=== PATIENT | female | born 1975 | race Caucasian/White ===

== ENCOUNTER 2017-06-13 07:20 | Emergency (ER) | payer BC ==
[2017-06-13 07:40] VITALS: BP 144/100
--- NOTE | 2017-06-13 07:51 | UC ---
Eye Complaint HPI - HPI Summary HPI Summary: ONSET YESTERDAY OF RIGHT EYE IRRITATION, REDNESS, CLEAR DRAINAGE. DOES WEAR CONTACTS BUT DID NOT WEAR THEM YESTERDAY. HAS HAD URI SX FOR ABOUT A WEEK. NO FEVER, MYALGIAS, NAUSEA OR UNUSUAL DUNCAN. NO PHOTOPHOBIA. HAS SOME BLURRY VISION DUE TO DRAINAGE. - History of Current Complaint Chief Complaint: UCGeneralIllness Stated Complaint: EYE ISSUE Time Seen by Provider: 06/13/17 07:36 Hx Obtained From: Patient Hx Last Menstrual Period: 06/07/17 Onset/Duration: Sudden Onset, Lasting Days, Still Present Timing: Constant Severity Initially: Moderate Severity Currently: Moderate Pain Intensity: 0 Pain Scale Used: 0-10 Numeric Location of Injury: Conjunctiva Aggravating Factor(s): Nothing Alleviating Factor(s): Nothing Associated Signs And Symptoms: Positive: Drainage (Clear). Negative: Photophobia, Drainage (Purulent), Vision Impairment Bilateral, Fever - Allergies/Home Medications Allergies/Adverse Reactions: Allergies Allergy/AdvReac Type Severity Reaction Status Date / Time No Known Allergies Allergy Verified 06/13/17 07:32 PMH/Surg Hx/FS Hx/Imm Hx Neurological History: Migraine - Surgical History Surgical History: Yes Surgery Procedure, Year, and Place: [facility] 2002 - Family History Known Family History: Positive: Hypertension - Social History Alcohol Use: Occasionally Substance Use Type: None Smoking Status (MU): Never Smoked Tobacco Review of Systems Constitutional: Negative Eyes: Blurred Vision, Drainage, Eye Redness ENT: Nasal Discharge Respiratory: Cough Cardiovascular: Negative Gastrointestinal: Negative All Other Systems Reviewed And Are Negative: Yes Physical Exam Triage Information Reviewed: Yes Appearance: Well-Appearing, No Pain Distress, Well-Nourished Vital Signs: Initial Vital Signs Temp 99 F 06/13/17 07:33 Pulse 71 06/13/17 07:33 Resp 14 06/13/17 07:33 BP 144/100 06/13/17 07:33 Pulse Ox 98 06/13/17 07:33 Vital Signs Reviewed: Yes Eyes: Positive: Conjunctiva Inflamed - RIGHT > LEFT, Discharge - CLEAR, Other: - PERRL, EOMI ENT: Positive: Hearing grossly normal, Pharynx normal, TMs normal Neck: Positive: Supple Respiratory Exam: Normal Cardiovascular Exam: Normal Abdomen Description: Positive: Soft Musculoskeletal: Positive: No Edema Neurological: Positive: Alert Psychological: Positive: Age Appropriate Behavior Skin: Negative: rashes Eye Complaint Course/Dx - Differential Dx/Diagnosis Provider Diagnoses: CONJUNCTIVITIS - RIGHT EYE Discharge - Discharge Plan Condition: Stable Disposition: HOME Prescriptions: Ciprofloxacin 0.3% OPTH.ESPERANZA* [Cipro 0.3% Opth*] 1 drop BOTH EYES Q4H #1 btl Patient Education Materials: Conjunctivitis (ED) Referrals: Soto BRIDGES,Flori [Nurse Practitioner] - If Needed Additional Instructions: NO CONTACTS UNTIL SYMPTOMS ARE COMPLETELY RESOLVED. SUGGEST DISPOSING OF THE EYE MAKEUP YOU USED WHILE SYMPTOMATIC. FOLLOW-UP WITH EYE DOCTOR IF YOU DEVELOP PAIN WITH EYE MOVEMENT, FOREIGN BODY SENSATION, PURULENT DRAINAGE, SENSITIVITY TO LIGHT, FEVER, VISUAL DISTURBANCE OR ANY OTHER CONCERNING SYMPTOMS. YOUR BLOOD PRESSURE WAS ELEVATED TODAY (144/100). THIS MAY BE DUE TO YOUR ACUTE CONDITION. MONITOR AND FOLLOW-UP WITH YOUR PCP WITHIN 4 WEEKS IF IT HAS NOT RETURNED TO NORMAL.
== END 2017-06-13 07:59 | disposition home or self-care (01) ==
LOC: UCEAST 07:20
DX: H10.31 Unspecified acute conjunctivitis, right eye (principal); R09.81 Nasal congestion; R05 Cough; G43.909 Migraine, unspecified, not intractable, without status migrainosus; Z90.49 Acquired absence of other specified parts of digestive tract
CPT/HCPCS: 99212; G0463

== ENCOUNTER 2017-07-24 08:51 | Emergency (ER) | payer BC ==
[2017-07-24 09:27] VITALS: BP 137/91
--- NOTE | 2017-07-24 09:31 | UC ---
Cardiac HPI - HPI Summary HPI Summary: 42 yo WF no pmhx c/o sudden sharp left chest wall pain associated with dizziness and burning left upper shoulder pain while letting the dogs out this AM, then felt panic thinking it may be a heart attack, quickly took and aspirin and came to . - History of Current Complaint Chief Complaint: UCChestPain Stated Complaint: PAIN BENEATH RIBS, AND DIZZINESS Time Seen by Provider: 07/24/17 08:53 Hx Obtained From: Patient Hx Last Menstrual Period: 07/20/17 Onset/Duration: Sudden Onset, Lasting Minutes Initial Severity: Moderate Current Severity: Moderate Pain Intensity: 0 Chest Pain Location: Left Lateral Character: Sharp/Stabbing - Allergy/Home Medications Allergies/Adverse Reactions: Allergies Allergy/AdvReac Type Severity Reaction Status Date / Time No Known Allergies Allergy Verified 07/24/17 09:00 Home Medications: Home Medications Aspirin EC Low Dose* [Ecotrin EC Low Dose 81 MG*] 4 tab PO ONCE PRN 07/24/17 [ History Confirmed 07/24/17] PMH/Surg Hx/FS Hx/Imm Hx - Additional Past Medical History Additional PMH: none - Surgical History Surgical History: Yes Surgery Procedure, Year, and Place: [facility] 2002 - Family History Known Family History: Positive: Hypertension - Social History Alcohol Use: Weekly Alcohol Amount: Weekends Substance Use Type: None Smoking Status (MU): Never Smoked Tobacco Have You Smoked in the Last Year: No Review of Systems Constitutional: Negative Skin: Negative Eyes: Negative ENT: Negative Respiratory: Negative Cardiovascular: Chest Pain Gastrointestinal: Negative Genitourinary: Negative Motor: Negative Neurovascular: Negative Musculoskeletal: Negative Neurological: Negative Psychological: Negative All Other Systems Reviewed And Are Negative: Yes Physical Exam Triage Information Reviewed: Yes Appearance: Well-Appearing Vital Signs: Initial Vital Signs Temp 36.7 C 07/24/17 09:01 Pulse 82 07/24/17 09:01 Resp 16 07/24/17 09:01 BP 171/102 07/24/17 09:01 Pulse Ox 98 07/24/17 09:01 Eye Exam: Normal ENT Exam: Normal Dental Exam: Normal Neck exam: Normal Neck: Positive: 1 Respiratory Exam: Normal Respiratory: Positive: Lungs clear Cardiovascular: Positive: RRR, No Murmur Abdominal Exam: Normal Musculoskeletal Exam: Normal Neurological Exam: Normal Psychological Exam: Normal Skin Exam: Normal - Assessment/Plan Course Of Treatment: EKG- neg for STT chnages ot TWI, CXR reveals faint infiltrate in the retrocardiac view- and on LLL on AP view- suspect walking PNA. Upon further questioning pt admitted to having a cough x 2 weeks w/o sputum and has not been feeling well lately with intermittent dizziness. UA- SG -1.025- on the dehydrated side, otherwise neg - Clinical Impression Provider Diagnoses: atypical PNA Discharge - Discharge Plan Condition: Stable Disposition: HOME Prescriptions: Levofloxacin TAB* [Levaquin TAB*] 500 mg PO DAILY 7 Days #7 tab Patient Education Materials: Pneumonia (ED) Referrals: No Primary Care Phys,NOPCP [Primary Care Provider] - Additional Instructions: take antibiotics as directed
--- NOTE | 2017-07-24 10:00 | RAD ---
INDICATION: Chest wall pain. COMPARISON: There are no prior studies available for comparison. TECHNIQUE: Dual-energy PA and lateral views of the chest were obtained. FINDINGS: The heart is within normal limits in size. Mediastinal and hilar contours appear within normal limits. The lungs are underinflated and clear. No pleural effusion or pneumothorax is seen. IMPRESSION: NO EVIDENCE FOR ACTIVE CARDIOPULMONARY DISEASE.
== END 2017-07-24 10:08 | disposition home or self-care (01) ==
LOC: UCEAST 08:51
DX: J18.9 Pneumonia, unspecified organism (principal); R07.89 Other chest pain
CPT/HCPCS: 71046; 81003; 87502; 93005; 99212; G0463